=== PATIENT | male | born 1990 | race Caucasian/White ===

== ENCOUNTER 2017-05-07 03:35 | Emergency (ER) | payer OTHER ==
[~2017-05-07] VITALS: Ht 175.3 cm; Wt 75.0 kg
[2017-05-07] MEDS ORDERED: IBUP200C PO (03:44)
--- NOTE | 2017-05-07 04:45 | REP ---
Clinical: Trauma . Comparison: None . Findings: Facial and periorbital soft tissue swelling noted. The ventricles, sulci, and cisterns are normal in position and appearance. Veronica-white differentiation is maintained. No acute intracranial hemorrhage, mass/mass effect, pathology or trauma/injury. No evidence for acute infarction. No extra-axial fluid collection. Calvarium is intact. Paranasal sinuses and mastoid air cells are clear. Impression: Facial and left periorbital soft tissue swelling. No evidence for acute intracranial pathology or trauma/injury. Signed by Joshua Ghotra MD 05/07/2017 04:36 A
--- NOTE | 2017-05-07 04:46 | REP ---
Clinical: Trauma. Technique: Axial noncontrast images through the facial bones to include the mandible with coronal and sagittal re-formations. Findings: Bilateral periorbital and facial soft tissue swelling appreciated. The osseous structures are intact and there is no evidence for fracture or dislocation. Specifically, the bilateral zygomatic arches, nasal bones, and mandible including bilateral temporomandibular joints appear normal and symmetric. The sinuses and mastoid air cells are all well aerated and clear without fluid level to suggest occult trauma. The bilateral orbits including the globes and intraconal contents appear symmetric and normal. Impression: Bilateral periorbital and facial soft tissue swelling. No evidence for acute pathology or trauma/injury. Signed by Joshua Ghotra MD 05/07/2017 04:37 A
[2017-05-07 05:33] VITALS: BP 125/66
== END 2017-05-07 05:36 | disposition home or self-care (01) ==
LOC: EDBD 03:35 → M ED 05:12
DX: S00.83XA Contusion of other part of head, initial encounter (principal); Y04.2XXA Assault by strike against or bumped into by another person, initial encounter; Y92.9 Unspecified place or not applicable; Y93.9 Activity, unspecified; Y99.9 Unspecified external cause status; F17.200 Nicotine dependence, unspecified, uncomplicated; Z88.0 Allergy status to penicillin

== ENCOUNTER → 2018-03-08 | Outpatient (REF) | payer OTHER ==
[2018-03-08 10:30] LABS: % NORMAL FORMS 10 % (>=4); IMMOTILITY 42 %; NON PROGRESSIVE MOTILITY (c) 17 %; PROGRESSIVE MOTILITY (a) 41 % (>=32); SEMEN APPEARANCE OPAQUE (OPAQUE); SEMEN VISCOSITY LIQUID (LIQUID); SEMEN pH 8.5 (7.0-8.0); SPERM CONCENTRATION 32.8 M/ml (>=15.0); SPERM# 98.4 M/Ejac (>=39); TOTAL MOTILITY 58 % (>=40); WBC CONCENTRATION >1 M/ml (<=1 M/ml)
[2018-03-08 10:31] LABS: TOTAL FUNCTIONAL 9.3 M/Ejac.; TOTAL PROGRESSIVE SPERM 40.7 M/Ejac.
== END ==
LOC: M LAB REF 10:13
DX: N46.8 Other male infertility (principal)